=== PATIENT | male | born 1980 | race Caucasian/White ===

== ENCOUNTER 2022-06-28 19:55 | Emergency (ER) | payer SELFPAY ==
[2022-06-28 20:12] LABS: BASOPHILS # (AUTO) 0.1 10^3/uL (0.0-0.1); BASOPHILS % (AUTO) 1 % (0-10); EOSINOPHILS # (AUTO) 0.2 10^3/uL (0.0-0.3); EOSINOPHILS % (AUTO) 2 % (0-10); HEMATOCRIT 45 % (40-54); HEMOGLOBIN 15.5 g/dL (13.3-17.7); LYMPHOCYTES # (AUTO) 2.4 10^3/uL (1.0-4.0); LYMPHOCYTES % (AUTO) 24 % (12-44); MEAN CORPUSCULAR HEMOGLOBIN 33 pg (25-34); MEAN CORPUSCULAR HGB CONC 35 g/dL (32-36); MEAN CORPUSCULAR VOLUME 93 fL (80-99); MEAN PLATELET VOLUME 10.1 fL (9.0-12.2); MONOCYTES # (AUTO) 0.9 10^3/uL (0.0-1.0); MONOCYTES % (AUTO) 9 % (0-12); NEUTROPHILS # (AUTO) 6.2 10^3/uL (1.8-7.8); NEUTROPHILS % (AUTO) 64 % (42-75); PLATELET COUNT 254 10^3/uL (130-400); WHITE BLOOD COUNT 9.7 10^3/uL (4.3-11.0)
[2022-06-28 20:17] LABS: BILIRUBIN,URINE NEGATIVE (NEGATIVE); CLARITY,URINE CLEAR; COLOR,URINE YELLOW; GLUCOSE, URINE (UA) NEGATIVE (NEGATIVE); KETONES,URINE TRACE (NEGATIVE); LEUKOCYTE ESTERASE ,URINE NEGATIVE (NEGATIVE); NITRITE,URINE NEGATIVE (NEGATIVE); PH,URINE 5.5 (5-9); PROTEIN,URINE NEGATIVE (NEGATIVE)
[2022-06-28 20:25] LABS: BACTERIA,URINE TRACE /HPF; CALCIUM OXALATE CRYSTALS,UR LARGE /LPF
[2022-06-28 20:28] LABS: AMPHETAMINE SCREEN, URINE NEGATIVE (NEGATIVE); BARBITURATE SCREEN URINE NEGATIVE (NEGATIVE); BENZODIAZEPINES SCREEN URINE NEGATIVE (NEGATIVE); CANNABINOID SCREEN, URINE NEGATIVE (NEGATIVE); COCAINE SCREEN URINE NEGATIVE (NEGATIVE); METHADONE STAT NEGATIVE (NEGATIVE); OPIATE SCREEN URINE NEGATIVE (NEGATIVE); OXYCODONE STAT NEGATIVE (NEGATIVE); PROPOXYPHENE STAT NEGATIVE (NEGATIVE); TRICYCLIC ANTIDEPRESSANTS SCRE NEGATIVE (NEGATIVE)
[2022-06-28 20:34] LABS: ALBUMIN 4.1 GM/DL (3.2-4.5); BILIRUBIN,TOTAL 0.4 MG/DL (0.1-1.0); CREATININE SERUM 1.19 MG/DL (0.60-1.30); POTASSIUM 3.4 MMOL/L (3.6-5.0); TOTAL PROTEIN 6.9 GM/DL (6.4-8.2)
--- NOTE | 2022-06-28 20:54 | Diagnostic Imaging Report ---
PROCEDURE: CT abdomen and pelvis without contrast. TECHNIQUE: Multiple contiguous axial images were obtained through the abdomen and pelvis without the use of intravenous contrast. Auto Exposure Controls were utilized during the CT exam to meet ALARA standards for radiation dose reduction. INDICATION: Right lower quadrant and right flank pain. No comparison is available. FINDINGS: The lung bases demonstrate no findings of pneumonia or edema. There is no pleural or pericardial effusion. The liver is of low density compatible with steatosis. There is some fatty sparing along the gallbladder fossa and falciform ligament. There are multiple gallstones within the gallbladder without gallbladder distention or biliary dilatation. The pancreas demonstrates no focal abnormality. The spleen is normal in size. There is no adrenal mass. The kidneys demonstrate very subtle prominence of the right-sided renal calyces and proximal aspect of the ureter which is secondary to a 2 mm stone within the distal right ureter at the level of the acetabular roofs approximately 4 cm above the bladder. There are no stones within the left kidney or left collecting system. The bladder is nondistended. There is no evidence of bowel obstruction. There is no bowel thickening. The appendix is normal. There is no free air, free fluid, abscess or adenopathy. There are small fat-containing inguinal hernias. There is no acute osseous abnormality demonstrated. IMPRESSION: 1. There is a small 2 mm stone within the distal right ureter approximately 4 cm above the bladder that results in minimal prominence of the proximal right ureter and right renal calyces. There is no significant perinephric fat stranding. 2. Left kidney nonobstructed and unremarkable. 3. Hepatic steatosis. 4. Cholelithiasis without biliary dilatation. 5. No free air, free fluid or focal inflammation. Dictated by: Dictated on workstation # [id number]
[2022-06-28] MEDS ORDERED: KETOROLAC 30 MG/ML VIAL IVP STA (21:00)
[2022-06-28] MEDS ORDERED: TAMSULOSIN 0.4 MG (FLOMAX) CAP PO STA (21:00)
--- NOTE | 2022-06-28 21:00 | ED Back Pain ---
General Chief Complaint: Back Problems Stated Complaint: LOWER ABD PAIN Nursing Triage Note: Pt complaining of RLQ abdominal pain that radiates to the right flank. 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 He states that this was severe pain. He has had some similar pain in the past with kidney stone. He was never sure if he actually passed his prior kidney stone. He was also concerned that he may be had appendicitis. He denies having any fever, chills, body aches, pain with urination, diarrhea, constipation. He does have urinary urgency and sensation that he needs to pee but has very little come out. He denies seeing any blood in his urine. He has had nausea but no vomiting. The pain was severe initially and was coming in waves but on arrival to the ED was feeling much better. He had not taken anything for the pain at home. Location: Other (Right flank) Timing/Duration: 1/2 Hour Severity: Severe Pain/Injury Location: Other (Right flank) Method of Injury: Unknown Modifying Factors: Improves With Other (Nothing seemed to make the pain better or worse. It seemed to come in waves.) Associated Symptoms: No muscle spasms, No fever, No weakness, No numbness in legs/feet, No tingling in legs/feet, No sensory/motor loss, No lower back pain, No loss of bladder control, No loss of bowel control Allergies and Home Medications Allergies Coded Allergies: No Known Drug Allergies (Unverified , 06/28/22) Patient Home Medication List Home Medication List Reviewed: Yes Hydrocodone/Acetaminophen (Hydrocodone-Acetamin 5-325 mg) 5 Mg-325 Mg Tablet, 1 TAB PO Q6H PRN for PAIN-SEVERE (8-10) Prescribed by: JIM GRANADO on 06/28/222216 Tamsulosin HCl (Flomax) 0.4 Mg Cap, 0.4 MG PO DAILY Prescribed by: JIM GRANADO on 06/28/222111 Review of Systems Constitutional: No chills, No fever EENTM: no symptoms reported Respiratory: no symptoms reported Cardiovascular: no symptoms reported Gastrointestinal: see HPI Genitourinary: see HPI Musculoskeletal: no symptoms reported Skin: no symptoms reported Psychiatric/Neurological: No Symptoms Reported Past Ieozjpu-Vnvgal-Ovndlj Hx Patient Social History Tobacco Use?: No Use of E-Cig and/or Vaping dev: No Substance use?: No Alcohol Use?: No Pt feels they are or have been: No Past Medical History Surgery/Hospitalization HX: Kidney stones Physical Exam Vital Signs Vital Signs - First Documented 06/28/22 19:58 Temp 36.5 Pulse 88 Resp 16 B/P (MAP) 130/88 (102) Pulse Ox 97 O2 Delivery Room Air Capillary Refill : Less Than 3 Seconds Height, Weight, BMI Height: '" Weight: lbs. oz. kg; BMI Method: General Appearance: No Apparent Distress, WD/WN HEENT: PERRL/EOMI, Pharynx Normal Neck: Full Range of Motion, Normal Inspection, Non Tender, Supple Cardiovascular: Regular Rate, Rhythm, Normal Peripheral Pulses Respiratory: Chest Non Tender, Lungs Clear, Normal Breath Sounds, No Accessory Muscle Use, No Respiratory Distress Gastrointestinal: Normal Bowel Sounds, No Pulsatile Mass, Non Tender, Soft Back: No CVA Tenderness Extremity: Normal Capillary Refill, Normal Inspection, No Pedal Edema Neurologic/Psychiatric: Alert, Oriented x3 Skin: Normal Color, Warm/Dry Progress/Results/Core Measures Results/Orders Lab Results Laboratory Tests Test 06/28/22 20:06 06/28/22 20:09 Range/Units Urine Color YELLOW Urine Clarity CLEAR Urine pH 5.5 5-9 Urine Specific [place] >=1.030 1.016-1.022 Urine Protein NEGATIVE NEGATIVE Urine Glucose (UA) NEGATIVE NEGATIVE Urine Ketones TRACE H NEGATIVE Urine Nitrite NEGATIVE NEGATIVE Urine Bilirubin NEGATIVE NEGATIVE Urine Urobilinogen 0.2 < = 1.0 MG/DL Urine Leukocyte Esterase NEGATIVE NEGATIVE Urine RBC (Auto) NEGATIVE NEGATIVE Urine RBC NONE /HPF Urine WBC NONE /HPF Urine Squamous Epithelial Cells 2-5 /HPF Urine Crystals PRESENT H /LPF Urine Calcium Oxalate Crystals LARGE H /LPF Urine Bacteria TRACE /HPF Urine Casts NONE /LPF Urine Mucus MODERATE H /LPF Urine Culture Indicated NO Urine Opiates Screen NEGATIVE NEGATIVE Urine Oxycodone Screen NEGATIVE NEGATIVE Urine Methadone Screen NEGATIVE NEGATIVE Urine Propoxyphene Screen NEGATIVE NEGATIVE Urine Barbiturates Screen NEGATIVE NEGATIVE Ur Tricyclic Antidepressants Screen NEGATIVE NEGATIVE Urine Phencyclidine Screen NEGATIVE NEGATIVE Urine Amphetamines Screen NEGATIVE NEGATIVE Urine Methamphetamines Screen NEGATIVE NEGATIVE Urine Benzodiazepines Screen NEGATIVE NEGATIVE Urine Cocaine Screen NEGATIVE NEGATIVE Urine Cannabinoids Screen NEGATIVE NEGATIVE White Blood Count 9.7 4.3-11.0 10^3/uL Red Blood Count 4.77 4.30-5.52 10^6/uL Hemoglobin 15.5 13.3-17.7 g/dL Hematocrit 45 40-54 % Mean Corpuscular Volume 93 80-99 fL Mean Corpuscular Hemoglobin 33 25-34 pg Mean Corpuscular Hemoglobin Concent 35 32-36 g/dL Red Cell Distribution Width 12.2 10.0-14.5 % Platelet Count 254 130-400 10^3/uL Mean Platelet Volume 10.1 9.0-12.2 fL Immature Granulocyte % (Auto) 0 % Neutrophils (%) (Auto) 64 42-75 % Lymphocytes (%) (Auto) 24 12-44 % Monocytes (%) (Auto) 9 0-12 % Eosinophils (%) (Auto) 2 0-10 % Basophils (%) (Auto) 1 0-10 % Neutrophils # (Auto) 6.2 1.8-7.8 10^3/uL Lymphocytes # (Auto) 2.4 1.0-4.0 10^3/uL Monocytes # (Auto) 0.9 0.0-1.0 10^3/uL Eosinophils # (Auto) 0.2 0.0-0.3 10^3/uL Basophils # (Auto) 0.1 0.0-0.1 10^3/uL Immature Granulocyte # (Auto) 0.0 0.0-0.1 10^3/uL Sodium Level 136 135-145 MMOL/L Potassium Level 3.4 L 3.6-5.0 MMOL/L Chloride Level 102 98-107 MMOL/L Carbon Dioxide Level 22 21-32 MMOL/L Anion Gap 12 5-14 MMOL/L Blood Urea Nitrogen 11 7-18 MG/DL Creatinine 1.19 0.60-1.30 MG/DL Estimat Glomerular Filtration Rate 78 BUN/Creatinine Ratio 9 Glucose Level 95 70-105 MG/DL Calcium Level 9.0 8.5-10.1 MG/DL Corrected Calcium 8.9 8.5-10.1 MG/DL Total Bilirubin 0.4 0.1-1.0 MG/DL Aspartate Amino Transf (AST/SGOT) 18 5-34 U/L Alanine Aminotransferase (ALT/SGPT) 26 0-55 U/L Alkaline Phosphatase 107 40-136 U/L Total Protein 6.9 6.4-8.2 GM/DL Albumin 4.1 3.2-4.5 GM/DL Lipase 35 8-78 U/L My Orders Orders - JIM GRANADO MD Comprehensive Metabolic Panel (06/28/22 20:06) Lipase (06/28/22 20:06) Ua Culture If Indicated (06/28/22 20:06) Ed Iv/Invasive Line Start (06/28/22 20:06) Cbc With Automated Diff (06/28/22 20:06) Drug Screen Stat (Urine) (06/28/22 20:06) Ct Abdomen/Pelvis Wo (06/28/22 20:09) Tamsulosin Capsule (Flomax Capsule) (06/28/22 21:00) Ketorolac Injection (Toradol Injection) (06/28/22 21:00) Rx-Hydrocodone/Apap 5-325 Mg (Rx-Vicodin (06/28/22 21:00) Medications Given in ED Current Medications Medications Dose Ordered Sig/Blayne Route Start Time Stop Time Status Last Admin Dose Admin Acetaminophen/ Hydrocodone Bitart 1 ea Q6H PRN PO 06/28/22 21:00 06/28/22 21:16 DC 06/28/22 21:08 1 EA Vital Signs/I&O 06/28/22 06/28/22 19:58 21:13 Temp 36.5 36.5 Pulse 88 88 Resp 16 16 B/P (MAP) 130/88 (102) 130/88 Pulse Ox 97 97 O2 Delivery Room Air Room Air Blood Pressure Mean: 102 Progress Progress Note #1: Progress Note Obtain labs and urinalysis. With his history of kidney stones and the sudden onset of pain this certainly could be a kidney stone recurrence. Ordered a CT scan of the abdomen pelvis without contrast to evaluate for possible kidney stone. Offered to give Toradol to help with the pain and patient stated that his pain was not bad currently so he did not feel like he needed anything. Advised to let us know if he felt the pain was getting worse and he could get the dose of Toradol. Progress Note #2: Progress Note Labs did not show any acute significant abnormality on his CBC or chemistry. He had elevated specific gravity greater than 1.030 on his urinalysis. He had calcium oxalate crystals in his urine but did not have leukocyte esterase, nitrites, white blood cells. CT scan was read out as having a kidney stone on the right side in the distal ureter. Updated patient on findings and ordered a dose of Flomax as well as a dose of IV Toradol. Take-home prescription of hydr ocodone for severe pain. Counseled on follow-up and return precautions. Advised to check with urology if not having improvement. Given supplies to strain his urine to see when the stone passes. Diagnostic Imaging Diagonstic Imaging: CT Plain Films/CT/US/NM/MRI: abdomen, pelvis Comments NAME: KELSEA STONE [facility] REC#: [id number] PT STATUS: REG ER : 1980 PHYSICIAN: JIM GRANADO MD ADMIT DATE: 06/28/22/ER FS Draft Date of Exam:06/28/22 CT ABDOMEN/PELVIS WO PROCEDURE: CT abdomen and pelvis without contrast. TECHNIQUE: Multiple contiguous axial images were obtained through the abdomen and pelvis without the use of intravenous contrast. Auto Exposure Controls were utilized during the CT exam to meet ALARA standards for radiation dose reduction. INDICATION: Right lower quadrant and right flank pain. No comparison is available. FINDINGS: The lung bases demonstrate no findings of pneumonia or edema. There is no pleural or pericardial effusion. The liver is of low density compatible with steatosis. There is some fatty sparing along the gallbladder fossa and falciform ligament. There are multiple gallstones within the gallbladder without gallbladder distention or biliary dilatation. The pancreas demonstrates no focal abnormality. The spleen is normal in size. There is no adrenal mass. The kidneys demonstrate very subtle prominence of the right-sided renal calyces and proximal aspect of the ureter which is secondary to a 2 mm stone within the distal right ureter at the level of the acetabular roofs approximately 4 cm above the bladder. There are no stones within the left kidney or left collecting system. The bladder is nondistended. There is no evidence of bowel obstruction. There is no bowel thickening. The appendix is normal. There is no free air, free fluid, abscess or adenopathy. There are small fat-containing inguinal hernias. There is no acute osseous abnormality demonstrated. IMPRESSION: 1. There is a small 2 mm stone within the distal right ureter approximately 4 cm above the bladder that results in minimal prominence of the proximal right ureter and right renal calyces. There is no significant perinephric fat stranding. 2. Left kidney nonobstructed and unremarkable. 3. Hepatic steatosis. 4. Cholelithiasis without biliary dilatation. 5. No free air, free fluid or focal inflammation. Dictated on workstation # [id number] Dict: 06/28/222028 Trans: 06/28/222052 [facility] [id number] Interpreted by: MI DEVRIES MD Electronically signed by: Reviewed: Reviewed by Me Departure Impression Primary Impression: Ureteral calculus, right Additional Impression: Renal colic on right side Disposition: HOME, SELF-CARE Condition: Stable Departure-Patient Inst. Decision time for Depature: 20:58 Referrals: NO,LOCAL PHYSICIAN (PCP) Primary Care Physician CESAR ALVAREZ MD [facility] [place] Patient Instructions: How to Strain Your Urine, Kidney Stone, Adult ED, Kidney Stone Diet, Renal Colic (DC) Add. Discharge Instructions: Stay well hydrated and drink more water and electrolyte drinks. Use the pain medicine if needed to help control your pain so you can pass the kidney stone. Follow up with Urology if not having any improvement. Strain your urine to see when you pass the kidney stone. All discharge instructions reviewed with patient and/or family. Voiced understanding. Scripts Hydrocodone/Acetaminophen (Hydrocodone-Acetamin 5-325 mg) 5 Mg-325 Mg Tablet 1 TAB PO Q6H PRN for PAIN-SEVERE (8-10) for 3 Days, #12 TAB 0 Refills Prov: JIM GRANADO MD 06/28/22 Tamsulosin HCl (Flomax) 0.4 Mg Cap 0.4 MG PO DAILY for renal colic for 5 Days, #5 CAP 0 Refills Prov: JIM GRANADO MD 06/28/22 JIM GRANADO MD Jun 28, 2022 21:00
[2022-06-28] MEDS ORDERED: TMSL.4C PO (21:12)
[2022-06-28] MEDS ORDERED: ACHD5005 PO ×2 (21:12→22:17)
[2022-06-28 21:13] VITALS: BP 130/88
[2022-06-29] MEDS ORDERED: KETO10TA PO (12:43)
[2022-06-29] MEDS ORDERED: ONDA4TAB11 SL (12:43)
== END 2022-06-28 21:16 | disposition home or self-care (01) ==
LOC: ER FS 20:00
DX: N20.1 Calculus of ureter (principal); N23 Unspecified renal colic; Z28.310 Unvaccinated for COVID-19
CPT/HCPCS: 36415; 74176; 80053; 80306; 81000; 83690; 85025

== ENCOUNTER 2022-06-29 12:13 | Emergency (ER) | payer SELFPAY ==
[~2022-06-29] VITALS: Ht 172.7 cm; Wt 106.6 kg
[~2022-06-29 12:13] MED LIST: ACHD5005 PO; TMSL.4C PO
[2022-06-29] MEDS ORDERED: LACTATED RINGERS 1,000 ML IV STA (12:28)
[2022-06-29] MEDS ORDERED: morphine INJ 10 MG/ML 1ML (SYR OR VIAL) IVP STA (12:28)
[2022-06-29] MEDS ORDERED: ONDANSETRON 4 MG/2 ML (SDV) Z0FRAN IVP ONE (12:30)
[2022-06-29] MEDS ORDERED: KETOROLAC 30 MG/ML VIAL IVP ONE (12:30)
[2022-06-29 12:37] LABS: CLARITY,URINE CLOUDY; COLOR,URINE YELLOW; GLUCOSE, URINE (UA) NEGATIVE (NEGATIVE); KETONES,URINE TRACE (NEGATIVE); LEUKOCYTE ESTERASE ,URINE TRACE (NEGATIVE); NITRITE,URINE NEGATIVE (NEGATIVE); PH,URINE 5.5 (5-9); PROTEIN,URINE NEGATIVE (NEGATIVE)
--- NOTE | 2022-06-29 12:39 | ED GI ---
General Chief Complaint: Abdominal/GI Problems Stated Complaint: VOMITING; ABD PAIN Source of Information: Patient Exam Limitations: No Limitations History of Present Illness Date Seen by Provider: Jun 29, 2022 Time Seen by Provider: 12:18 Initial Comments 42-year-old male with past medical history of kidney stones coming in due to ri ght flank pain. Came to the ER yesterday and was diagnosed with a 2 mm kidney stone on the right. Was sent home with Flomax and hydrocodone. His pain has been doing well at discharge so he did not take any hydrocodone, woke up at 3 AM in severe pain so took 1. He feels like the pain is too severe and he needed more help. Has had some nausea with nonbloody nonbilious vomiting as well. Has not scheduled any appointment with any urologist, and denies ever having any type of urologic procedure. Is otherwise denying any fever, chest pain, shortness of breath, abdominal pain, diarrhea, dysuria, or any other concerns. Allergies and Home Medications Allergies Coded Allergies: No Known Drug Allergies (Unverified , 06/28/22) Patient Home Medication List Home Medication List Reviewed: Yes Hydrocodone/Acetaminophen (Hydrocodone-Acetamin 5-325 mg) 5 Mg-325 Mg Tablet, 1 TAB PO Q6H PRN for PAIN-SEVERE (8-10) Prescribed by: JIM GRANADO on 06/28/222216 Ketorolac Tromethamine (Ketorolac Tromethamine) 10 Mg Tablet, 10 MG PO Q8H Prescribed by: RED VILLAFUERTE on 06/29/22 1243 Ondansetron (Ondansetron Odt) 4 Mg Tab.rapdis, 4 MG SL Q6H PRN for NAUSEA/VOMITING Prescribed by: RED VILLAFUERTE on 06/29/22 1243 Tamsulosin HCl (Flomax) 0.4 Mg Cap, 0.4 MG PO DAILY Prescribed by: JIM GRANADO on 06/28/222111 Review of Systems Review of Systems Constitutional: No fever EENTM: No Symptoms Reported Respiratory: No Symptoms Reported Cardiovascular: No Symptoms Reported Gastrointestinal: No Symptoms Reported Musculoskeletal: no symptoms reported Skin: no symptoms reported Psychiatric/Neurological: No Symptoms Reported Endocrine: No Symptoms Reported Hematologic/Lymphatic: No Symptoms Reported All Other Systems Reviewed Negative Unless Noted: Yes Past Viyjtcs-Wglrra-Axobxt Hx Patient Social History Substance use?: No Past Medical History Surgery/Hospitalization HX: Kidney stones Surgeries: No Physical Exam Vital Signs Vital Signs - First Documented 06/29/22 12:15 Temp 36.3 Pulse 76 Resp 16 B/P (MAP) 117/78 (91) O2 Delivery Room Air Capillary Refill : Height/Weight/BMI Height: '" Weight: lbs. oz. kg; BMI Method: General Appearance: WD/WN, mild distress HEENT: PERRL/EOMI, normal ENT inspection, pharynx normal Neck: non-tender, full range of motion, supple, normal inspection Respiratory: chest non-tender, lungs clear, normal breath sounds, no respiratory distress, no accessory muscle use Cardiovascular: regular rate, rhythm, no edema, no murmur Gastrointestinal: normal bowel sounds, non tender, soft; No distended, No guarding, No rebound Extremities: normal range of motion, non-tender, normal inspection, no pedal edema, no calf tenderness, normal capillary refill Back: normal inspection, no vertebral tenderness, CVA tenderness (R) Neurologic/Psychiatric: no motor/sensory deficits, alert, normal mood/affect Skin: normal color, warm/dry Lymphatic: no adenopathy Progress/Results/Core Measures Results/Orders Lab Results Laboratory Tests Test 06/29/22 12:27 Range/Units Urine Color YELLOW Urine Clarity CLOUDY Urine pH 5.5 5-9 Urine Specific [place] >=1.030 1.016-1.022 Urine Protein NEGATIVE NEGATIVE Urine Glucose (UA) NEGATIVE NEGATIVE Urine Ketones TRACE H NEGATIVE Urine Nitrite NEGATIVE NEGATIVE Urine Bilirubin 1+ H NEGATIVE Urine Urobilinogen 0.2 < = 1.0 MG/DL Urine Leukocyte Esterase TRACE H NEGATIVE Urine RBC (Auto) NEGATIVE NEGATIVE Urine RBC NONE /HPF Urine WBC 0-2 /HPF Urine Squamous Epithelial Cells 2-5 /HPF Urine Crystals NONE /LPF Urine Bacteria FEW H /HPF Urine Casts NONE /LPF Urine Mucus MODERATE H /LPF Urine Culture Indicated NO My Orders Orders - RED VILLAFUERTE MD Ua Culture If Indicated (06/29/22 12:28) Lactated Ringers (Lr 1000 Ml Iv Solution (06/29/22 12:28) Ondansetron Injection (Zofran Injectio (06/29/22 12:30) Morphine Injection (Morphine Injection (06/29/22 12:28) Ketorolac Injection (Toradol Injection) (06/29/22 12:30) Medications Given in ED Current Medications Medications Dose Ordered Sig/Blayne Route Start Time Stop Time Status Last Admin Dose Admin Ketorolac Tromethamine 15 mg ONCE ONCE IVP 06/29/22 12:30 06/29/22 12:31 DC 06/29/22 12:38 15 MG Ondansetron HCl 4 mg ONCE ONCE IVP 06/29/22 12:30 06/29/22 12:31 DC 06/29/22 12:38 4 MG Vital Signs/I&O 06/29/22 12:15 Temp 36.3 Pulse 76 Resp 16 B/P (MAP) 117/78 (91) O2 Delivery Room Air Progress Progress Note : Progress Note 41-year-old male with above history coming in due to pain with a known kidney stone. ABCs were intact and vitals were stable on presentation. An IV was placed and he was given morphine, Toradol, Zofran, and a bolus of IV fluids. His pain was very well controlled with this. I will add Toradol and Zofran to his regimen at home. I discussed if symptoms are worsening and he feels like he needs to be admitted, then to present back to an ER for this. Departure Impression Primary Impression: Ureterolithiasis Disposition: 01 HOME, SELF-CARE Condition: Stable Departure-Patient Inst. Decision time for Depature: 13:20 Referrals: NO,LOCAL PHYSICIAN (PCP/Family) Primary Care Physician Patient Instructions: Kidney Stones (DC), Kidney Stone Diet Add. Discharge Instructions: You do have a 2 mm kidney stone on the right which has roughly an 80% chance of passing or better over the next days to weeks. Please follow-up with Dr. Berman, the urologist in [place], or urologist of your choosing that you can find agreeable. Take the hydrocodone as needed and scheduled the Toradol for the next couple of days. You also have nausea medicine sent to the pharmacy. After you run out of the Toradol, I recommend taking ibuprofen 600 mg every 6 hours for the pain. Scripts Ondansetron (Ondansetron Odt) 4 Mg Tab.rapdis 4 MG SL Q6H PRN for NAUSEA/VOMITING for 5 Days, #20 TAB Prov: RED VILLAFUERTE MD 06/29/22 Ketorolac Tromethamine (Ketorolac Tromethamine) 10 Mg Tablet 10 MG PO Q8H for 4 Days, #12 TAB Prov: RED VILLAFUERTE MD 06/29/22 Work/School Note: Work Release Form Date Seen in the Emergency Department: Jun 29, 2022 Return to Work: Jul 01, 2022 Restrictions: No Restrictions RED VILLAFUERTE MD Jun 29, 2022 12:39
[2022-06-29] MEDS ORDERED: ONDA4TAB11 SL (12:43)
[2022-06-29] MEDS ORDERED: KETO10TA PO (12:43)
[2022-06-29 12:52] LABS: BILIRUBIN,URINE 1+ (NEGATIVE)
[2022-06-29 12:53] LABS: BACTERIA,URINE FEW /HPF; WBC,URINE 0-2 /HPF
[2022-06-29 13:24] VITALS: BP 147/88
== END 2022-06-29 13:24 | disposition home or self-care (01) ==
LOC: EDUNIT# 12:13 → ER FS 12:15
DX: N20.1 Calculus of ureter (principal); Z28.310 Unvaccinated for COVID-19
CPT/HCPCS: 81000; 99282

== ENCOUNTER 2022-11-15 23:32 | Emergency (ER) | payer SELFPAY ==
[~2022-11-15 23:32] MED LIST changes: +KETO10TA PO; +ONDA4TAB11 SL
--- NOTE | 2022-11-15 23:46 | ED General ---
General Stated Complaint: DIZZINESS Source of Information: Patient Exam Limitations: No Limitations History of Present Illness Date Seen by Provider: Nov 15, 2022 Time Seen by Provider: 23:36 Initial Comments 42-year-old male with no pertinent past medical history coming in after he was driving, felt like his body felt warm and his face was flushed for about a minute. Did not have any pain, shortness of breath, nausea, vomiting, diarrhea, weakness, numbness, headache, vision changes, or any other symptoms associated with it. He states this is happened in the past before. Otherwise denies any other acute complaints. Allergies and Home Medications Allergies Coded Allergies: No Known Drug Allergies (Unverified , 06/28/22) Patient Home Medication List Home Medication List Reviewed: Yes Hydrocodone/Acetaminophen (Hydrocodone-Acetamin 5-325 mg) 5 Mg-325 Mg Tablet, 1 TAB PO Q6H PRN for PAIN-SEVERE (8-10) Prescribed by: JIM GRANADO on 06/28/227 Ketorolac Tromethamine (Ketorolac Tromethamine) 10 Mg Tablet, 10 MG PO Q8H Prescribed by: RED VILLAFUERTE on 06/29/22 1243 Ondansetron (Ondansetron Odt) 4 Mg Tab.rapdis, 4 MG SL Q6H PRN for NAUSEA/VOMITING Prescribed by: RED VILLAFUERTE on 06/29/22 1243 Tamsulosin HCl (Flomax) 0.4 Mg Cap, 0.4 MG PO DAILY Prescribed by: JIM GRANADO on 06/28/222 Review of Systems Review of Systems Constitutional: No fever EENTM: no symptoms reported Respiratory: no symptoms reported Cardiovascular: no symptoms reported Gastrointestinal: no symptoms reported Genitourinary: no symptoms reported Musculoskeletal: no symptoms reported Skin: see HPI Psychiatric/Neurological: No Symptoms Reported Past [id number]-Lwdsul Hx Patient Social History Tobacco Use?: Yes Tobacco type used: Cigarettes Past Medical History Surgery/Hospitalization HX: Kidney stones Surgeries: No Physical Exam Vital Signs Vital Signs - First Documented 11/15/22 23:37 Temp 36.6 Pulse 85 Resp 18 B/P (MAP) 157/95 (115) Pulse Ox 100 O2 Delivery Room Air Capillary Refill : Height, Weight, BMI Height: '" Weight: lbs. oz. kg; 35.00 BMI Method: General Appearance: No Apparent Distress, WD/WN Eyes: Bilateral Eye Normal Inspection HEENT: PERRL/EOMI, Normal ENT Inspection, Pharynx Normal Neck: Full Range of Motion, Normal Inspection, Non Tender, Supple Respiratory: Chest Non Tender, Lungs Clear, Normal Breath Sounds, No Accessory Muscle Use, No Respiratory Distress Cardiovascular: Regular Rate, Rhythm, No Edema, Normal Peripheral Pulses Gastrointestinal: Normal Bowel Sounds, Non Tender, Soft; No Distended, No Guarding Back: Normal Inspection, No CVA Tenderness Extremity: Normal Capillary Refill, Normal Inspection, Normal Range of Motion, Non Tender, No Calf Tenderness, No Pedal Edema Neurologic/Psychiatric: Alert, No Motor/Sensory Deficits, Normal Mood/Affect Skin: Normal Color, Warm/Dry Progress/Results/Core Measures Suspected Sepsis SIRS Temperature: Pulse: Respiratory Rate: Blood Pressure / Mean: Results/Orders Lab Results Laboratory Tests Test 11/15/22 23:44 Range/Units Glucometer 128 H 70-110 MG/DL My Orders Orders - RED VILLAFUERTE MD Ekg Tracing (11/16/22 00:06) Accucheck Stat ONCE (11/16/22 00:06) Vital Signs/I&O 11/15/22 11/16/22 23:37 00:32 Temp 36.6 36.6 Pulse 85 85 Resp 18 18 B/P (MAP) 157/95 (115) 157/95 Pulse Ox 100 100 O2 Delivery Room Air Room Air Capillary Refill : Progress Note : Progress Note 42-year-old male with above history coming in after feeling flushed for about a minute. ABCs were intact and vitals were stable on presentation. Physical exam with no acute abnormalities, patient not flushed at this time. He had a difficult time really even elaborating what he was feeling and when he was feeling it. Denied any chest pain, palpitations, vomiting, diarrhea, shortness of breath, or any other concerning findings. He is at his baseline with a normal neuro exam. EKG with no acute ischemic changes showing normal sinus rhythm. Glucose around 120 here. I am unclear the exact etiology of the patient's symptoms, but it does not seem to be life-threatening at this time. Prior to discharge, the patient started opening up stating that this happens a couple times a year where he feels "impending doom" starts breathing rapidly, feels like his vision starts going into a tunnel, starts having some tingling around his lips, and he does confirm that this was happening tonight. The symptoms do seem more consistent with a panic attack. I discussed that this is a diagnosis of exclusion and I would still want him to follow-up with a PCP. I will have him follow-up with the PCP as an outpatient. ECG Initial ECG Impression Date: Nov 15, 2022 Initial ECG Impression Time: 23:42 Initial ECG Rate: 82 Initial ECG Rhythm: Normal Sinus Comment Narrow QRS, normal axis, no significant ST changes or T wave abnormalities Departure Impression Primary Impression: Flushing reaction Disposition: 01 HOME, SELF-CARE Condition: Stable Departure-Patient Inst. Decision time for Depature: 00:27 Referrals: [facility] [facility],LOCAL PHYSICIAN (PCP) Primary Care Physician Patient Instructions: Panic Attack ED Add. Discharge Instructions: We are not exactly sure of the hot sensation that you are feeling. It does not appear to be life-threatening at this time. Keep an eye on it and may be journal if this happens again, when it is happening, what you are feeling, how long is happening. Please follow-up with a primary care provider regarding this. [facility] would be someone to follow-up with, their number is in this paperwork. Discussed that this could be a panic attack, that is hard to diagnose. There is no information in this paperwork about that that you can read about. If you develop any severe chest pain, severe shortness of breath, weakness or you cannot move 1 side of your body, numbness where you cannot feel 1 side of your body, or any other significant concerns, then please come back to the ER Work/School Note: Work Release Form Date Seen in the Emergency Department: Nov 15, 2022 Return to Work: Nov 17, 2022 Restrictions: No Restrictions RED VILLAFUERTE MD Nov 15, 2022 23:46
[2022-11-16 00:32] VITALS: BP 157/95
== END 2022-11-16 00:32 | disposition home or self-care (01) ==
LOC: EDUNIT# 23:32 → ER FS 23:36
DX: R23.2 Flushing (principal); F17.210 Nicotine dependence, cigarettes, uncomplicated; Z28.310 Unvaccinated for COVID-19
CPT/HCPCS: 82947; 93005